=== PATIENT | male | born 1980 | race American Indian/Alaskan Native ===

== ENCOUNTER 2016-06-17 10:08 | Emergency (ER) | payer BC ==
--- NOTE | 2016-06-17 13:43 | Emergency Department Report ---
ED Chest Pain HPI - General Chief Complaint: Chest Pain Stated Complaint: LT RIB PAIN Time Seen by Provider: 06/17/16 13:26 Source: patient Mode of arrival: Ambulatory Limitations: No Limitations - History of Present Illness Initial Comments: 36-year-old male past medical history diabetes presents with complaint of 3 weeks of left-sided chest pain. Patient works in [employer] states he lifted a heavy piece of equipment and strained his left flank/ribs 3 weeks ago and has persisted. Denies any associated rash, shortness of breath no palpitations chest pain is achy in nature. Denies any fever or chills, denies any nausea or vomiting, no direct trauma to ribs. Pt is awake alert and oriented 3 not in acute distress does not appear short of breath and audible wheezing or stridor sitting relaxed in room. MD Complaint: chest pain Onset/Timin -: week(s) Onset: during exertion Pain Location: left chest Pain Radiation: none Severity: moderate Severity scale (0 -10): 5 Quality: aching Consistency: intermittent Improves With: rest Worsens With: movement Aspirin use within the Past 7 Days: (0) No - Related Data Home Medications Medication Instructions Recorded Confirmed Last Taken metFORMIN [Glucophage] 500 mg PO BID 01/05/15 01/05/15 01/05/15 Previous Rx's Medication Instructions Recorded Last Taken Type Acetaminophen/Codeine [Tylenol #3] 1 tab PO TID PRN #15 tab 01/05/15 Unknown Rx methOCARBAMOL [Robaxin TAB] 500 mg PO BID #20 tab 01/05/15 Unknown Rx Naproxen [Naprosyn TAB] 500 mg PO BID PRN #25 tablet 06/17/16 Unknown Rx Allergies Allergy/AdvReac Type Severity Reaction Status Date / Time No Known Allergies Allergy Unverified 01/05/15 19:42 RICKEY score - Rickey Score Age > 65: (0) No Aspirin use within the Past 7 Days: (0) No 3 or more CAD Risk Factors: (0) No 2 or more Angina events in past 24 hrs: (0) No Known CAD with more than 50% Stenosis: (0) No Elevated Cardiac Markers: (0) No ST Deviation Greater than 0.5mm: (0) No RICKEY Score: 0 ED Review of Systems ROS: Stated complaint: LT RIB PAIN Other details as noted in HPI Constitutional: denies: chills, fever Eyes: denies: eye pain, eye discharge, vision change ENT: denies: ear pain, throat pain Respiratory: denies: cough, shortness of breath, wheezing Cardiovascular: chest pain (3 weeks of left-sided chest pain, worse with movement). denies: palpitations Endocrine: no symptoms reported Gastrointestinal: denies: abdominal pain, nausea, diarrhea Genitourinary: denies: urgency, dysuria Musculoskeletal: denies: back pain, joint swelling, arthralgia Skin: denies: rash, lesions Neurological: denies: headache, weakness, paresthesias Psychiatric: denies: anxiety, depression Hematological/Lymphatic: denies: easy bleeding, easy bruising ED Past Medical Hx - Past Medical History Previous Medical History?: Yes Hx Diabetes: Yes ([id number]) - Surgical History Past Surgical History?: No - Social History Smoking Status: Never Smoker Substance Use Type: None - Medications Home Medications: Home Medications Medication Instructions Recorded Confirmed Last Taken Type Acetaminophen/Codeine [Tylenol #3] 1 tab PO TID PRN #15 tab 01/05/15 Unknown Rx metFORMIN [Glucophage] 500 mg PO BID 01/05/15 01/05/15 01/05/15 History methOCARBAMOL [Robaxin TAB] 500 mg PO BID #20 tab 01/05/15 Unknown Rx Naproxen [Naprosyn TAB] 500 mg PO BID PRN #25 tablet 06/17/16 Unknown Rx ED Physical Exam - General Limitations: No Limitations General appearance: alert, in no apparent distress - Head Head exam: Present: atraumatic, normocephalic - Eye Eye exam: Present: normal appearance, PERRL, EOMI - ENT ENT exam: Present: mucous membranes moist - Neck Neck exam: Present: normal inspection, full ROM - Respiratory Respiratory exam: Present: normal lung sounds bilaterally, chest wall tenderness (reproducible left-sided chest wall tenderness). Absent: respiratory distress - Cardiovascular Cardiovascular Exam: Present: regular rate, normal rhythm, normal heart sounds. Absent: diastolic murmur, rubs, gallop - GI/Abdominal GI/Abdominal exam: Present: soft, normal bowel sounds - Rectal Rectal exam: Present: deferred - Extremities Exam Extremities exam: Present: normal inspection, full ROM, tenderness - Back Exam Back exam: Present: normal inspection, full ROM - Neurological Exam Neurological exam: Present: alert, oriented X3, CN II-XII intact, normal gait - Psychiatric Psychiatric exam: Present: normal affect, normal mood - Skin Skin exam: Present: warm, dry, intact, normal color. Absent: rash ED Course Vital Signs 06/17/16 11:06 Temperature 98.2 F Pulse Rate 82 Respiratory 18 Rate Blood Pressure 148/96 O2 Sat by Pulse 95 Oximetry ED Medical Decision Making - Lab Data Result diagrams: 06/17/16 13:47 06/17/16 13:47 - Medical Decision Making A/P: Musculoskeletal pain, chest wall pain, costochondritis 1- HEART 0 points Low Score (0-3 points) Risk of MACE of 0.9-1.7%; RICKEY 0 points 5% risk at 14 days of: all-cause mortality, new or recurrent FL, or severe recurrent ischemia requiring urgent revascularization. PERC 0 criteria No need for further workup, as <2% chance of PE. If no criteria are positive and clinicians pre-test probability is <15%, PERC Rule criteria are satisfied. 0.0 points Low risk group: 1.3% chance of PE in an ED population. Another study assigned scores less than 4 as PE unlikely and had a 3% incidence of PE. 2-EKG sinus rhythm 3-labs within normal limits, troponin and CK-MB within normal limits. Patient has had chest pain for 3 weeks, reproducible on clinical exam on palpation of left costal margin 4-follow-up with primary care and cardiology. Cardiology is not urgent as patient has very low risk of cardiac event given risk stratification however I did advise patient to call for follow-up as he does have risk factor of diabetes 5- case d/w Dr. Nugent before discharge Critical care attestation.: If time is entered above; I have spent that time in minutes in the direct care of this critically ill patient, excluding procedure time. ED Disposition Clinical Impression: Chest wall pain Disposition: DISCHARGED TO HOME OR SELFCARE Is pt being admited?: No Does the pt Need Aspirin: No Condition: Stable Instructions: Chest Pain (ED), Costochondritis (ED) Prescriptions: Naproxen [Naprosyn TAB] 500 mg PO BID PRN #25 tablet PRN Reason: Pain Referrals: PRIMARY CARE,MD [Primary Care Provider] - 3-5 Days Forms: Work/School Release Form(ED) Time of Disposition: 15:00
[2016-06-17 14:01] LABS: Basophils % (Auto) 1.1 % (0.0-1.8); Eosinophils % (Auto) 4.8 % (0.0-4.3); Hematocrit 43.5 % (35.5-45.6); Hemoglobin 14.7 gm/dl (11.8-15.2); Mean Corpuscular HGB Conc 34 % (32-34); Mean Corpuscular Hemoglobin 29 pg (28-32); Mean Corpuscular Volume 86 fl (84-94); Platelet Count 207 K/mm3 (140-440); Red Blood Count 5.08 M/mm3 (3.65-5.03); Red Cell Distribution Width 12.9 % (13.2-15.2); White Blood Count 6.1 K/mm3 (4.5-11.0)
--- NOTE | 2016-06-17 14:08 | XRay Report ---
RIB RADIOGRAPHS WITH CHEST VIEW INDICATION: Pain left costal margin. COMPARISON: None similar at this institution. FINDINGS: Frontal chest as also AP and oblique radiographs to evaluate left ribs, 5 images demonstrate normal cardiomediastinal silhouette. Clear lungs without effusions, CHF or pneumothorax. Slight levocurvature apex about T11, possibly positional versus scoliosis. Specifically, no definite or significantly displaced left rib fracture identified. CONCLUSION: No acute left rib or chest radiographic abnormality with few incidental findings, as described. Please note that some acute rib fractures may be radiographically occult. Thank you for the opportunity to participate in this patient's care.
[2016-06-17] MEDS ORDERED: MOTRIN PO ONE (14:11)
[2016-06-17 14:22] LABS: Anion Gap 17 mmol/L; BUN/Creatinine Ratio 14.28; Blood Urea Nitrogen 10 mg/dL (9-20); Calcium 9.1 mg/dL (8.4-10.2); Carbon Dioxide 26 mmol/L (22-30); Chloride 98.5 mmol/L (98-107); Glucose 151 mg/dL (75-100); Potassium 3.6 mmol/L (3.6-5.0); Sodium 138 mmol/L (137-145)
[2016-06-17 14:23] LABS: Creatine Kinase MB 3.6 ng/mL (0.0-4.0)
[2016-06-17 15:07] VITALS: BP 145/94
== END 2016-06-17 15:11 | disposition home or self-care (01) ==
LOC: ED 10:08
DX: R07.89 Other chest pain (principal); E11.9 Type 2 diabetes mellitus without complications
CPT/HCPCS: 36415; 80048; 82550; 82553; 84484; 85025; 93005; 93010; 99284